=== PATIENT | female | born 1950 | race Caucasian/White ===

== ENCOUNTER 2022-07-04 11:28 | Emergency (ER) | payer MEDICARE, SELFPAY ==
[2022-07-04 11:29] VITALS: BP 139/68; PULSE 69; RESP 18; TEMP 36.6; O2SAT 100; BMI 24.0
--- NOTE | 2022-07-04 12:30 | RAD_ITS ---
INDICATION: injury EXAMINATION/TECHNIQUE: X-RAY - left fifth finger 4 VIEWS COMPARISON: None. FINDINGS: SOFT TISSUES: Soft tissue swelling. No radiopaque foreign body. BONES/JOINTS: Comminuted intra-articular displaced fracture of the base of the middle phalanx of the fifth finger.. No evidence of dislocation. 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 RAD/Finger(s) Min 2 Views IMPRESSION: Comminuted intra-articular displaced fracture of the middle phalanx of the fifth finger. Electronically Signed: Gurdeep Trujillo MD at 12:53 EST ,
[2022-07-04 12:54] LABS: Absolute Lymphocyte Count 1.54 X10^3/uL (0.83-4.51); Absolute Neutrophil Count 7.5 X10^3/uL (2.0-7.7); Basophil# 0.04 X10^3/uL; Basophil% 0.4 % (0-1); Eosinophil# 0.05 X10^3/uL; Eosinophils% 0.5 % (0-5); Hematocrit 36.6 % (37-47); Hemoglobin 11.2 g/dL (12.0-15.0); Lymphocyte # 1.54 X10^3/ul (0.83-4.51); Lymphocyte % 15.7 % (19-41); Mean Corp Hgb Conc 30.6 g/dL (32-36); Mean Corpuscular Hgb 24.8 pg (27.0-32.0); Mean Corpuscular Volume 81.2 fL (81-99); Mean Platelet Vol. 10.3 fl (6.2-12.0); Monocyte# 0.65 X10^3/uL; Monocyte% 6.6 % (0-10); NRBC Flagged by Analyzer 0 % (0-5); Neutrophil % 76.5 % (47-70); Platelet Count 240 K/mm3 (150-450); RBC Distribution Width CV 14.6 % (11.6-14.6); RBC Distribution Width SD 43.5 fl (35.1-43.9); Red Blood Count 4.51 M/mm3 (4.2-5.4); White Blood Count 9.8 K/mm3 (4.4-11.0)
[2022-07-04] MEDS: Cefazolin 1 GM/50 ML BAG IV (12:54)
[2022-07-04] MEDS: Diphth,Pertuss(Acell),Tet Vac 0.5 ML Vial IM (12:56)
--- NOTE | 2022-07-04 12:57 | EX.ED.UPPERE ---
HPI History of Present Illness Chief Complaint: Upper Extremity Injury Informant: patient and family Narrative Narrative: [id number] female presents log splitter injury to the left pinky 11 AM. There was a log activity where she was involved in. Injury to the isolated pinky, there is paresthesias distally she is not on anticoagulation medicines. Tetanus unknown. Allergies to sulfa penicillin causing hives there is no anaphylaxis. She is on med reflux. Tetanus Immunization: Unknown Prior similar symptoms: No PFSH PFSH Medical History (Updated 07/04/22 @ 13:32 by Claudio Wagner) COVID Osteopenia Prediabetes Allergy/AdvReac Type Severity Reaction Status Date / Time Penicillins Allergy Hives Verified 07/04/22 12:54 Sulfa (Sulfonamide Allergy Hives Verified 07/04/22 12:54 Antibiotics) Social History Smoking Status: Never smoker ROS ROS ED Constitutional Constitutional ED: Denies chills, fever(s) or sweats Eyes Eyes: Denies change in vision ENT ENT ED: Denies dysphagia or sore throat Cardiovascular Cardiovascular: Denies chest pain, leg edema, palpitations or racing heartbeat Respiratory/Chest Respiratory/Chest: Denies cough, dyspnea or dyspnea on exertion Gastrointestinal Gastrointestinal: Denies abdominal pain, diarrhea, nausea or vomiting Genitourinary Genitourinary ED: Denies dysuria, hematuria or urinary frequency Musculoskeletal Musculoskeletal: Reports extremity pain and other Details: [place] injury ; Denies back pain or neck pain Integumentary Reports wounds; Denies rash Neurologic Neurologic: Denies headache(s), paresthesias or weakness EXAM Physical Exam Const Vital Signs: 07/04/22 11:29 Temperature 98 F Temperature Source Temporal Pulse Rate 69 Respiratory Rate 18 Blood Pressure 139/68 H Blood Pressure Mean 91 Pulse Ox 100 Oxygen Delivery Method Room Air Positive well nourished and well developed General Appearance ED: well developed and NAD HEENT Reports moist mucous membranes normocephalic and atraumatic Eyes PERRL, EOMs intact bilaterally and conjunctivae normal General Eye ED: Yes normal appearance of both eyes Neck no lymphadenopathy and supple General: Negative for tenderness Chest Wall Chest: Negative for tenderness Resp normal respiratory effort and normal air movement Effort and Inspection: symmetric chest movement; Negative for respiratory distress Cardio regular rate, regular rhythm and no murmurs Peripheral Pulses: pulses 2+ throughout GI normal to inspection, nondistended, normoactive bowel sounds and non-tender Palpation: Negative for guarding or rebound tenderness present Back/Spine no CVA tenderness and no thoracic nor lumbar tenderness Extremity Extremity Narrative: Let him and: Pinky laceration across the middle phalanx of the pinky with deformities of the pinky bony exposure, unable to flex or extend past the PIP. Distal sensation decreased, there is cyanosis at the distal phalanx. General Extremety ED: Yes edema and tenderness General Extremity: edema Neuro oriented x3 and no sensory deficits noted Sensorium / Orientation: awake and alert Skin no rashes or lesions noted and no wounds MDM MDM MDM Narrative Medical decision making narrative: Interventions / MDM: Differential diagnosis: Open finger fracture, tendon lacerations, nerve injury Diagnosis considered but do not suspect: N/A My EKG interpretation: N/A Imaging independently reviewed and interpreted by myself: 3 view left pinky: Displaced fracture distal to the PIP joint. External documents reviewed: N/A Test considered but not ordered:N/A ED course: Clinically concerns for open finger fracture at the PIP joint region. There is cyanosis that does slightly improve when aligned. Try to reach out to plastic hand locally, they are unavailable. Discussed with patient will need transfer, transfer to [facility] discussed who is on page. Patient had labs obtained, tetanus updated Ancef. Patient's ring was removed by myself and the ring finger with ring cutters. Washout of the finger with sterile water and saline 250 cc, wet-to-dry dressing placed to the pinky holding in more of a straight alignment lois wrapped to the ring finger. Re-evaluation: Stable, spoke with transfer line, they reach out to Dr. Barrera excepts the patient to be seen in the ED. I spoke with the ED Dr. Porter updated excepted to the ED. Patient will be going by private vehicle. Disposition discussed with patient/family/significant other: Patient and family Case discussed with consulting clinician: Ortho hand, Dr. Barrera, [facility] ED physician, Dr. Porter Lab Data Labs: Laboratory Results - last 24 hr 07/04/22 12:39 WBC 9.8 RBC 4.51 Hgb 11.2 L Hct 36.6 L MCV 81.2 MCH 24.8 L MCHC 30.6 L RDW Std Deviation 43.5 RDW Coeff of Darryl 14.6 Plt Count 240 MPV 10.3 Immature Gran % (Auto) 0.300 Neut % (Auto) 76.5 H Lymph % (Auto) 15.7 L [place] % (Auto) 6.6 Eos % (Auto) 0.5 Baso % (Auto) 0.4 Absolute Neuts (auto) 7.5 Absolute Lymphs (auto) 1.54 Nucleated RBC % 0 Radiography Diagnostic Testing: Clinical Impression(s) from Imaging Studies Finger X-Ray 07/04/22 12:30 IMPRESSION: Comminuted intra-articular displaced fracture of the middle phalanx of the fifth finger. Electronically Signed: Gurdeep Trujillo MD at 12:53 EST , Critical Care Time Critical Care Time: Yes Critical care time (excluding procedures): 30-74 minutes, Discussing w/Patient &/or Family/Accounting Generalist, Discussing w/Consultants, Arranging Admission or Transfer, Performing Direct Patient Care at Bedside and - (40 minutes) Discharge Plan Triage Chief Complaint: Upper Extremity Injury ED Provider: Jorje Bravo Dx/Rx/DC Orders Clinical Impression: Open displaced fracture of phalanx of left little finger, Injury of tendon of finger, Paresthesia Primary Care Provider: Royer Cho Referrals: Royer Cho, DO [Primary Care Provider] - Disposition Disposition: DC/Tx to Another Type of HCF Discharge Location: [facility] Discharge Date/Time: 07/04/22 14:17
[2022-07-04 13:03] LABS: Anion Gap 7 (5-15); BUN 16 mg/dL (7-18); BUN/Creat Ratio 18.1 RATIO (10-20); Calcium,Total 9.1 mg/dL (8.5-10.1); Chloride 106 mmol/L (98-107); Creatinine, Serum 0.88 mg/dL (0.55-1.02); EST Glomerular Filtration Rate 67 mL/min (>60); Est Glom Filt Rate - Afr Amer 81 mL/min (>60); Glucose 114 mg/dL (74-106); Potassium 3.9 mmol/L (3.5-5.1); Sodium Level 139 mmol/L (136-145)
[2022-07-04 13:05] LABS: International Normalized Ratio 1.1
[2022-07-04 13:06] LABS: Partial Thromboplast Time 24.9 Seconds (24.1-36.2)
[2022-07-04 13:27] VITALS: BP 171/74; PULSE 74; RESP 16; TEMP 36.9; O2SAT 99
== END 2022-07-04 14:17 | disposition other institution (70) ==
PROVIDERS: Emergency Provider Emergency Medicine; PCP Student in an Organized Health Care Education/Training Program; Visit Provider Emergency Medicine
DX: S62.627B Displaced fracture of middle phalanx of left little finger, initial encounter for open fracture (principal); R20.2 Paresthesia of skin; X58.XXXA Exposure to other specified factors, initial encounter; Z23 Encounter for immunization; Z20.822 Contact with and (suspected) exposure to COVID-19
CPT/HCPCS: 73140; 80048; 85025; 85610; 85730; 87811; 90471; 90715; 96365; 99285; J7040; A4216